=== PATIENT | male | born 1975 | race Caucasian/White ===

== ENCOUNTER 2016-11-23 14:43 | Emergency (ER) | payer OTHER ==
[~2016-11-23] VITALS: Ht 190.5 cm; Wt 160.0 kg
[2016-11-23 14:46] VITALS: BP 142/87; PULSE 94; RESP 18; TEMP 98.9; O2SAT 96
[2016-11-23] MEDS ORDERED: ALLO300T2 PO (14:58)
[2016-11-23] MEDS ORDERED: MELO7.5T4 PO (14:58)
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
[2016-11-23] MEDS ORDERED: IBUPROFEN 800 MG TAB PO ONE (15:15)
[2016-11-23] MEDS ORDERED: TETANUS/DIPHTHERIA TOXOID ADULT 0.5 ML VIAL IM ONE (15:15)
[2016-11-23 15:45] LABS: AUTOMATED NEUTROPHIL # 7.8 TH/MM3 (1.8-7.7); BASOPHIL % 0.4 % (0.0-2.0); EOSINOPHIL # 0.1 TH/MM3 (0-0.4); EOSINOPHIL % 1.2 % (0.0-4.0); HEMATOCRIT 41.7 % (39.0-51.0); HEMO FLAGS DIFF FINAL; LYMPH % 17.6 % (9.0-44.0); LYMPHOCYTE # 1.8 TH/MM3 (1.0-4.8); MEAN CELL VOLUME 82.5 FL (80.0-100.0); MEAN CORPUSCULAR HEMOGLOBIN 28.9 PG (27.0-34.0); MONO % 6.6 % (0.0-8.0); NEUT % 74.2 % (16.0-70.0); PLATELET COUNT 200 TH/MM3 (150-450); RED BLOOD COUNT 5.06 MIL/MM3 (4.50-5.90); RED CELL DISTRIBUTION WIDTH 13.5 % (11.6-17.2); WHITE BLOOD COUNT 10.5 TH/MM3 (4.0-11.0)
[2016-11-23] MEDS ORDERED: IOHEXOL 350 MG/ML 10 ML VIAL (for RAD DIAG) IV ONE (15:57)
[2016-11-23 16:11] LABS: BICARBONATE 27.1 MEQ/L (21.0-32.0); POTASSIUM 3.7 MEQ/L (3.5-5.1)
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
== END 2016-11-23 17:11 | disposition home or self-care (01) ==
LOC: NEPD 14:43
DX: S20.219A Contusion of unspecified front wall of thorax, initial encounter (principal); K21.9 Gastro-esophageal reflux disease without esophagitis; M10.9 Gout, unspecified; V43.52XA Car driver injured in collision with other type car in traffic accident, initial encounter
CPT/HCPCS: 71260; 74177; 80048; 85025; 90471; 90714; 99284; Q9967